=== PATIENT | female | born 1960 | race African-American/Black ===

== ENCOUNTER 2016-07-31 07:02 | Inpatient (IN) | payer OTHER ==
[~2016-07-31] VITALS: Ht 152.4 cm; Wt 56.0 kg
[~2016-07-31 07:02] MED LIST: ADVAIR 250/501 DISK IH; AMARYL4 MG PO; CRESTOR; CRESTOR5 MG PO; GLUCOPHAGE850 MG PO; JANUMET 50/11 TABLET PO; LISINOPRIL; LYRICA; LYRICA50 MG PO; LYRICA75 MG PO; METFORMIN; METFORMIN HCL1000 MG PO; NICOTROL INHALE10 MG IH; PREDNISONE10 MG PO; PREDNISONE20 MG PO; PROAIR HFA8.5 GM IH; VENTOLIN HFA18 GM IH; WOMEN'S MULTI200 MCG PO; ZESTRIL,PRINIVI10 MG PO; ZITHROMAX Z-PA250 MG PO; ZITHROMAX500 MG PO
[2016-07-31 07:42] LABS: EOSINOPHIL (%) 1.6 % (0-5); EOSINOPHIL COUNT 0.1 K/uL (0-0.3); HEMATOCRIT 40.6 % (36.0-46.0); IMMATURE GRANULOCYTE (%) 0.2 % (0.0-0.7); INSTRUMENT ABS NEUTROPHIL CT 4.1 K/uL; LYMPHOCYTE COUNT 3.4 K/uL (1.0-2.8); MCH 26.5 PG (29.0-34.0); MCHC 34.2 G/DL (30.0-36.0); MCV 77.5 FL (83-99); MEAN PLAT.VOLUME 9.3 uM^3 (9.5-12.4); MONOCYTE (%) 5.5 % (3-12); MONOCYTE COUNT 0.4 K/uL (0-0.8); NEUTROPHIL (%) 50.3 % (45-76); NEUTROPHIL COUNT 4.1 K/uL (1.8-6.4); PLATELET COUNT 310 K/uL (156-360); RBC DIS.WIDTH-CV 13.6 % (11.8-14.6); RBC DIS.WIDTH-SD 38.4 % (39-53); RED BLOOD COUNT 5.24 M/uL (3.80-5.20); WHITE BLOOD COUNT 8.1 K/uL (4.1-10.2)
[2016-07-31] MEDS ORDERED: LEVEMIR FL100 UNIT/1 SC (08:05)
[2016-07-31 08:08] LABS: CHLORIDE 107 mEq/L (99-109); POTASSIUM 4.2 mEq/L (3.7-5.4); SODIUM 138 mEq/L (136-147)
[2016-07-31 08:10] LABS: GLUCOSE 140 mg/dL (70-99)
[2016-07-31 08:12] LABS: ANION GAP 8 MEQ/L (2-14); TROP-I INTERPRETATION POSITIVE
[2016-07-31 08:14] LABS: GFR ESTIMATE (CALCULATED) > 59 mL/min/
[2016-07-31 08:15] LABS: UREA NITROGEN (BUN) 8 mg/dL (9-23)
[2016-07-31 08:54] LABS: PROTHROMBIN TIME 9.8 (9.2-11.2); PTT 24.2 (25-32)
[2016-07-31 09:39] LABS: HDL CHOLESTEROL 33 MG/DL (Desirable>=50); LDL CHOLESTEROL 135 mg/dL (Desirable<100); NON-HDL CHOLESTEROL 167 mg/dL (Desirable<160); SAMPLE HEMOLYSIS CHECK 0; SAMPLE ICTERIC CHECK 0; SAMPLE LIPEMIA CHECK 0; TOTAL CHOLESTEROL 200 mg/dL (Desirable<200); TRIGLYCERIDES 159 MG/DL (Normal: <150)
[2016-07-31] MEDS ORDERED: LISINOPRIL20 MG PO (09:52)
[2016-07-31] MEDS ORDERED: ADVAIR 250/501 DISK IH (09:55)
[2016-07-31 10:25] LABS: HEMOGLOBIN A1c (GLYCOHEMOGLOB) 8.8 % HGB (Below 5.7)
[2016-07-31 11:06] LABS: POINT-OF-CARE METER ID UU13113696
[2016-07-31 14:03] LABS: POINT-OF-CARE METER ID UU13113819
[2016-07-31 16:00] VITALS: BP 150/84
[2016-07-31 16:01] VITALS: BP 150/84
[2016-07-31 17:04] LABS: TROP-I INTERPRETATION POSITIVE; TROPONIN-I 2.71 ng/mL (0.0-0.30)
[2016-07-31 19:28] VITALS: BP 156/85
[2016-07-31 20:35] LABS: TROP-I INTERPRETATION POSITIVE; TROPONIN-I 1.93 ng/mL (0.0-0.30)
[2016-07-31 21:23] LABS: POINT-OF-CARE METER ID UU14174216
[2016-08-01 01:00] VITALS: BP 169/73
[2016-08-01 05:05] VITALS: BP 132/71
[2016-08-01 07:54] VITALS: BP 154/91
[2016-08-01 08:58] LABS: HEMATOCRIT 40.8 % (36.0-46.0); MCH 26.8 PG (29.0-34.0); MCV 76.5 FL (83-99); MEAN PLAT.VOLUME 9.2 uM^3 (9.5-12.4); PLATELET COUNT 283 K/uL (156-360); RBC DIS.WIDTH-CV 13.9 % (11.8-14.6); RED BLOOD COUNT 5.33 M/uL (3.80-5.20); WHITE BLOOD COUNT 9.2 K/uL (4.1-10.2)
[2016-08-01 09:23] LABS: ALKALINE PHOSPHATASE 66 IU/L (3-129); ANION GAP 8 MEQ/L (2-14); CHLORIDE 104 MEQ/L (99-109); GFR ESTIMATE (CALCULATED) > 59 mL/min/; GLUCOSE 205 mg/dL (70-99); POTASSIUM 4.1 MEQ/L (3.7-5.4); SAMPLE HEMOLYSIS CHECK 0; SAMPLE ICTERIC CHECK 0; SAMPLE LIPEMIA CHECK 0; SODIUM 137 MEQ/L (136-147); TOTAL BILIRUBIN 0.5 MG/DL (0.0-1.0); UREA NITROGEN (BUN) 8 mg/dL (9-23)
[2016-08-01 09:26] LABS: TROP-I INTERPRETATION POSITIVE
[2016-08-01 11:36] VITALS: BP 147/78
[2016-08-01 11:48] LABS: POINT-OF-CARE METER ID UU14174216
[2016-08-01] MEDS ORDERED: ATORVASTATIN CA40 MG PO (12:56)
[2016-08-01] MEDS ORDERED: NITROSTAT0.4 MG SL (12:56)
[2016-08-01] MEDS ORDERED: NICOTINE PATCH1 EAC2 TD (12:56)
[2016-08-01] MEDS ORDERED: EFFIENT10 MG PO (12:56)
[2016-08-01] MEDS ORDERED: ASPIR-LOW81 MG PO (12:56)
[2016-08-01] MEDS ORDERED: ATORVASTATIN CA80 MG PO (12:59)
[2016-08-01] MEDS ORDERED: METFORMIN HCL1000 MG PO (13:02)
[2016-08-01] MEDS ORDERED: CARVEDILOL6.25 MG PO (13:02)
== END 2016-08-01 15:13 | disposition home or self-care (01) | DRG 247 ==
LOC: EME 07:02 → EDOF 08:39 → 4EAST 08:39
PROVIDERS: Emergency Medicine; Internal Medicine; Internal Medicine Interventional Cardiology; Student in an Organized Health Care Education/Training Program
DX: I21.4 Non-ST elevation (NSTEMI) myocardial infarction (principal); J44.9 Chronic obstructive pulmonary disease, unspecified; I10 Essential (primary) hypertension; E78.5 Hyperlipidemia, unspecified; F17.210 Nicotine dependence, cigarettes, uncomplicated; K21.9 Gastro-esophageal reflux disease without esophagitis; E66.9 Obesity, unspecified; I25.10 Atherosclerotic heart disease of native coronary artery without angina pectoris; I34.0 Nonrheumatic mitral (valve) insufficiency; Z68.24 Body mass index [BMI] 24.0-24.9, adult; E11.65 Type 2 diabetes mellitus with hyperglycemia
CPT/HCPCS: 71010; 80048; 80053; 80061; 82948; 83036; 84484; 85025; 85027; 85347; 85610; 85730; 93005; 94640; 94640 76; 99202; 99281; 99285; C1725; C1769; C1874; C1887; J1644; J1815; J1885; J2250; J2270; J2405; J3010; J7030

== ENCOUNTER 2016-10-09 10:08 | Observation (INO) | payer OTHER ==
[~2016-10-09] VITALS: Ht 152.4 cm; Wt 71.9 kg
[~2016-10-09 10:08] MED LIST changes: +ASPIR-LOW81 MG PO; +ATORVASTATIN CA40 MG PO; +ATORVASTATIN CA80 MG PO; +CARVEDILOL6.25 MG PO; +EFFIENT10 MG PO; +LEVEMIR FL100 UNIT/1 SC; +LISINOPRIL20 MG PO; +NICOTINE PATCH1 EAC2 TD; +NITROSTAT0.4 MG SL
[2016-10-09 10:57] LABS: HEMATOCRIT 38.6 % (36.0-46.0); MCHC 34.5 G/DL (30.0-36.0); MCV 78.3 FL (83-99); PLATELET COUNT 319 K/uL (156-360); RBC DIS.WIDTH-CV 14.6 % (11.8-14.6); RBC DIS.WIDTH-SD 41.3 % (39-53); RED BLOOD COUNT 4.93 M/uL (3.80-5.20); WHITE BLOOD COUNT 7.9 K/uL (4.1-10.2)
[2016-10-09 11:13] LABS: CHLORIDE 106 mEq/L (99-109); SODIUM 140 mEq/L (136-147)
[2016-10-09 11:15] LABS: GLUCOSE 201 mg/dL (70-99)
[2016-10-09 11:17] LABS: ANION GAP 9 MEQ/L (2-14)
[2016-10-09 11:19] LABS: GFR ESTIMATE (CALCULATED) > 59 mL/min/; TROP-I INTERPRETATION NEGATIVE; TROPONIN-I < 0.01 ng/mL (0.0-0.30)
[2016-10-09 11:20] LABS: UREA NITROGEN (BUN) 12 mg/dL (9-23)
[2016-10-09] MEDS ORDERED: LIPITOR80 MG PO (11:58)
[2016-10-09] MEDS ORDERED: EFFIENT10 MG PO (11:58)
[2016-10-09] MEDS ORDERED: METFORMIN HCL1000 MG PO (12:00)
[2016-10-09] MEDS ORDERED: LO-DOSE ASPIRIN81 M2 PO (12:00)
[2016-10-09 13:04] LABS: D-DIMER ELISA 0.92 mg/L FEU (< 0.57)
[2016-10-09 13:30] VITALS: BP 131/61
[2016-10-09 13:39] LABS: TROP-I INTERPRETATION NEGATIVE; TROPONIN-I < 0.01 ng/mL (0.0-0.30)
[2016-10-09 15:56] LABS: POINT-OF-CARE METER ID UU13113700
[2016-10-09 16:00] VITALS: BP 128/64
[2016-10-09 19:30] VITALS: BP 151/84
[2016-10-09 20:26] LABS: TROP-I INTERPRETATION NEGATIVE; TROPONIN-I < 0.01 ng/mL (0.0-0.30)
[2016-10-10 04:30] VITALS: BP 131/74
[2016-10-10 06:15] LABS: HEMATOCRIT 35.3 % (36.0-46.0); MCH 27.9 PG (29.0-34.0); MCHC 35.1 G/DL (30.0-36.0); MCV 79.5 FL (83-99); MEAN PLAT.VOLUME 9.2 uM^3 (9.5-12.4); PLATELET COUNT 301 K/uL (156-360); RBC DIS.WIDTH-CV 14.9 % (11.8-14.6); RBC DIS.WIDTH-SD 43.1 % (39-53); RED BLOOD COUNT 4.44 M/uL (3.80-5.20); WHITE BLOOD COUNT 6.8 K/uL (4.1-10.2)
[2016-10-10 06:34] LABS: ANION GAP 6 MEQ/L (2-14); CHLORIDE 108 MEQ/L (99-109); GFR ESTIMATE (CALCULATED) > 59 mL/min/; GLUCOSE 146 mg/dL (70-99); POTASSIUM 4.2 MEQ/L (3.7-5.4); SAMPLE HEMOLYSIS CHECK 0; SAMPLE ICTERIC CHECK 0; SAMPLE LIPEMIA CHECK 0; SODIUM 141 MEQ/L (136-147); UREA NITROGEN (BUN) 11 mg/dL (9-23)
[2016-10-10 08:54] VITALS: BP 137/73
[2016-10-10] MEDS ORDERED: NICOTINE PATCH1 EAC2 TD (10:45)
[2016-10-10] MEDS ORDERED: RANEXA500 MG PO (10:46)
== END 2016-10-10 11:19 | disposition home or self-care (01) ==
LOC: EME 10:08 → EDOF 12:06 → 5WEST 13:36
PROVIDERS: Hospitalist; Internal Medicine; Nurse Practitioner Family; Physician Assistant
DX: R07.9 Chest pain, unspecified (principal); J44.1 Chronic obstructive pulmonary disease with (acute) exacerbation; J45.901 Unspecified asthma with (acute) exacerbation; E11.9 Type 2 diabetes mellitus without complications; I10 Essential (primary) hypertension; I25.2 Old myocardial infarction; F17.210 Nicotine dependence, cigarettes, uncomplicated; Z95.5 Presence of coronary angioplasty implant and graft; E78.5 Hyperlipidemia, unspecified; K21.9 Gastro-esophageal reflux disease without esophagitis; I25.10 Atherosclerotic heart disease of native coronary artery without angina pectoris; Z79.4 Long term (current) use of insulin
CPT/HCPCS: 71020; 71275; 80048; 82948; 84484; 85027; 85379; 93005; 99202; 99281; 99284; G0378; J1650; J1815

== ENCOUNTER 2017-01-21 17:53 | Emergency (ER) | payer OTHER ==
[~2017-01-21] VITALS: Ht 152.4 cm; Wt 65.8 kg
[~2017-01-21 17:53] MED LIST changes: +LIPITOR80 MG PO; +LO-DOSE ASPIRIN81 M2 PO; +RANEXA500 MG PO
[2017-01-21 18:07] LABS: HEMATOCRIT 34.7 % (36.0-46.0); MCH 27.7 PG (29.0-34.0); MCHC 35.7 G/DL (30.0-36.0); MCV 77.5 FL (83-99); MEAN PLAT.VOLUME 8.4 uM^3 (9.5-12.4); PLATELET COUNT 251 K/uL (156-360); RBC DIS.WIDTH-CV 14.7 % (11.8-14.6); RBC DIS.WIDTH-SD 41.1 % (39-53); RED BLOOD COUNT 4.48 M/uL (3.80-5.20); WHITE BLOOD COUNT 8.7 K/uL (4.1-10.2)
[2017-01-21 18:15] LABS: CHLORIDE 108 mEq/L (99-109); POTASSIUM 3.7 mEq/L (3.7-5.4); SODIUM 143 mEq/L (136-147)
[2017-01-21 18:17] LABS: GLUCOSE 110 mg/dL (70-99)
[2017-01-21 18:19] LABS: ANION GAP 13 MEQ/L (2-14)
[2017-01-21 18:21] LABS: GFR ESTIMATE (CALCULATED) > 59 mL/min/
[2017-01-21 18:22] LABS: UREA NITROGEN (BUN) 11 mg/dL (9-23)
[2017-01-21 18:29] LABS: TROP-I INTERPRETATION NEGATIVE; TROPONIN-I < 0.01 ng/mL (0.0-0.30)
[2017-01-21 21:23] LABS: TROP-I INTERPRETATION NEGATIVE; TROPONIN-I < 0.01 ng/mL (0.0-0.30)
[2017-01-21] MEDS ORDERED: MUCINEX D ER T1 EACH PO (21:57)
[2017-01-21] MEDS ORDERED: PREDNISONE20 MG PO (21:57)
[2017-01-21] MEDS ORDERED: ALBUTEROL2.5 MG/3 M IH (21:57)
[2017-01-21 22:11] VITALS: BP 152/62
== END 2017-01-21 22:15 | disposition home or self-care (01) ==
LOC: EME 17:53
PROVIDERS: Emergency Medicine
DX: J44.1 Chronic obstructive pulmonary disease with (acute) exacerbation (principal); I10 Essential (primary) hypertension; E78.5 Hyperlipidemia, unspecified; E11.65 Type 2 diabetes mellitus with hyperglycemia; Z79.4 Long term (current) use of insulin; I25.2 Old myocardial infarction; Z95.5 Presence of coronary angioplasty implant and graft; Z79.82 Long term (current) use of aspirin; Z87.891 Personal history of nicotine dependence
CPT/HCPCS: 71020; 80048; 84484; 85027; 93005; 94640; 99281; 99284; J2930; J7644

== ENCOUNTER 2017-04-08 12:45 | Emergency (ER) | payer OTHER ==
[~2017-04-08] VITALS: Ht 152.4 cm; Wt 71.3 kg
[~2017-04-08 12:45] MED LIST changes: +ALBUTEROL2.5 MG/3 M IH; +MUCINEX D ER T1 EACH PO
[2017-04-08 13:35] LABS: HEMATOCRIT 36.8 % (36.0-46.0); MCH 28.6 PG (29.0-34.0); MCHC 36.1 G/DL (30.0-36.0); MCV 79.1 FL (83-99); MEAN PLAT.VOLUME 8.9 uM^3 (9.5-12.4); PLATELET COUNT 288 K/uL (156-360); RBC DIS.WIDTH-CV 13.6 % (11.8-14.6); RBC DIS.WIDTH-SD 39.1 % (39-53); RED BLOOD COUNT 4.65 M/uL (3.80-5.20); WHITE BLOOD COUNT 8.7 K/uL (4.1-10.2)
[2017-04-08 13:44] LABS: CHLORIDE 104 mEq/L (99-109); POTASSIUM 4.3 mEq/L (3.7-5.4); SODIUM 137 mEq/L (136-147)
[2017-04-08 13:46] LABS: GLUCOSE 99 mg/dL (70-99)
[2017-04-08 13:47] LABS: ANION GAP 11 MEQ/L (2-14)
[2017-04-08 13:50] LABS: GFR ESTIMATE (CALCULATED) > 59 mL/min/
[2017-04-08 13:51] LABS: UREA NITROGEN (BUN) 13 mg/dL (9-23)
[2017-04-08] MEDS ORDERED: VENTOLIN HFA18 GM IH (14:44)
[2017-04-08 14:58] VITALS: BP 112/62
== END 2017-04-08 14:58 | disposition home or self-care (01) ==
LOC: EME 12:45
PROVIDERS: Nurse Practitioner Family
DX: J06.9 Acute upper respiratory infection, unspecified (principal); R11.2 Nausea with vomiting, unspecified; R42 Dizziness and giddiness; J44.9 Chronic obstructive pulmonary disease, unspecified; I10 Essential (primary) hypertension; E78.5 Hyperlipidemia, unspecified; E11.9 Type 2 diabetes mellitus without complications; Z79.4 Long term (current) use of insulin; Z95.5 Presence of coronary angioplasty implant and graft; Z79.82 Long term (current) use of aspirin; Z87.891 Personal history of nicotine dependence
CPT/HCPCS: 71020; 80048; 85027; 87502; 93005; 99281; 99283

== ENCOUNTER 2017-11-02 08:51 | Emergency (ER) | payer OTHER ==
[~2017-11-02] VITALS: Ht 152.4 cm; Wt 75.1 kg
[~2017-11-02 08:51] MED LIST changes: +ACETAMINOPHN-T1 EACH PO; +BUSPAR10 MG PO; +CALTRATE PLUS1 EACH PO; +COREG6.25 M1 PO; +COZAAR25 MG PO; +CYMBALTA60 MG PO; +MOTRIN600 MG PO; +PROVENTIL HFA6.7 GM IH; +PROVENTIL,2.5 MG/3 M IH; +REGLAN5 MG PO; +XANAX0.25 MG PO
[2017-11-02 10:48] LABS: HEMATOCRIT 36.4 % (36.0-46.0); MCH 28.1 PG (29.0-34.0); MCHC 35.7 G/DL (30.0-36.0); MCV 78.8 FL (83-99); PLATELET COUNT 271 K/uL (156-360); RBC DIS.WIDTH-CV 13.9 % (11.8-14.6); RBC DIS.WIDTH-SD 39.6 % (39-53); RED BLOOD COUNT 4.62 M/uL (3.80-5.20); WHITE BLOOD COUNT 7.2 K/uL (4.1-10.2)
[2017-11-02 11:06] LABS: PTT 27.5 SEC (25-37)
[2017-11-02 11:22] LABS: CHLORIDE 103 MEQ/L (99-109); CREATININE 0.8 MG/DL (0.6-1.3); GFR ESTIMATE (CALCULATED) > 59 mL/min/; GLUCOSE 330 mg/dL (70-99); POTASSIUM 4.5 MEQ/L (3.7-5.4); SODIUM 137 MEQ/L (136-147); UREA NITROGEN (BUN) 14 mg/dL (9-23)
[2017-11-02 12:35] VITALS: BP 152/80
== END 2017-11-02 12:38 | disposition home or self-care (01) ==
LOC: EME 08:51
PROVIDERS: Emergency Medicine
DX: R51 Headache (principal); E11.319 Type 2 diabetes mellitus with unspecified diabetic retinopathy without macular edema; H35.61 Retinal hemorrhage, right eye; I10 Essential (primary) hypertension; J44.9 Chronic obstructive pulmonary disease, unspecified; Z53.20 Procedure and treatment not carried out because of patient's decision for unspecified reasons; I25.2 Old myocardial infarction; K21.9 Gastro-esophageal reflux disease without esophagitis; Z95.5 Presence of coronary angioplasty implant and graft; Z79.4 Long term (current) use of insulin; Z79.82 Long term (current) use of aspirin; F17.200 Nicotine dependence, unspecified, uncomplicated
CPT/HCPCS: 70450; 80048; 85027; 85610; 85730; 99281; 99284; J0780; J1200